=== PATIENT | female | born 1995 | race Two or more races ===

== ENCOUNTER → 2018-11-11 | Outpatient (CLI) | payer SELFPAY ==
[2018-11-11 13:59] LABS: Candida species (DNA Probe) Negative (NEGATIVE); G. vaginalis (DNA Probe) Negative (NEGATIVE); T. vaginalis (DNA Probe) Negative (NEGATIVE)
== END | disposition home or self-care (01) ==
LOC: LAB 12:25 → LAB SHORT 12:25
PROVIDERS: Advanced Practice Midwife
DX: N89.8 Other specified noninflammatory disorders of vagina (principal)
CPT/HCPCS: 87480; 87510; 87660

== ENCOUNTER → 2021-05-21 | Outpatient (CLI) | payer OTHER | LOC: LAB 08:16 → LAB SHORT 08:16 | DX: J02.9 Acute pharyngitis, unspecified (principal) | CPT/HCPCS: 87081 ==